=== PATIENT | male | born 1960 | race Caucasian/White ===

== ENCOUNTER 2018-11-29 06:54 | Day surgery (SDC) | payer MEDICAID ==
[~2018-11-29] VITALS: Ht 193 cm; Wt 85.9 kg
[~2018-11-29 06:54] MED LIST: AMIN30LI28 PO; ASCO500 PO; CA C1TAB95 PO; DIVA125T32 PO; DOCU250C91 PO; FERG325 PO; FOLI1 PO; MELA5TAB3 PO; MULT-1203 PO; OLAN10TA3 PO; SENN-176 PO
[2018-11-29] MEDS ORDERED: SODIUM CHLORIDE 0.9% 1,000 ML IV ONE ×2 (07:39→08:00)
[2018-11-29] MEDS ORDERED: LIDOCAINE 1%/EPI 1:200,000/PF 10 ML VIAL ONE (08:45)
[2018-11-29] MEDS ORDERED: FLUMAZENIL 0.1 MG/ML 5 ML VIAL IVP ONE (09:16)
[2018-11-29] MEDS ORDERED: MIDAZOLAM HCL 2 MG/2 ML VIAL ONE (09:16)
[2018-11-29] MEDS ORDERED: NALOXONE HCL 0.4 MG/ML VIAL ONE (09:16)
[2018-11-29] MEDS ORDERED: FentaNYL CITRATE-PF 100 MCG/2 ML VIAL ONE (09:16)
[2018-11-29] MEDS ORDERED: FentaNYL CITRATE-PF 100 MCG/2 ML VIAL IVP ONE (09:23)
[2018-11-29] MEDS ORDERED: MIDAZOLAM HCL 2 MG/2 ML VIAL IVP ONE (09:23)
[2018-11-29] MEDS ORDERED: OxyCODONE HCL/ACETAMINOPHEN 5-325 MG TABLET PO ONE (10:15)
== END 2018-11-29 12:30 | disposition home or self-care (01) ==
LOC: SURGERY 06:54 → EDSTATUS 09:00 → SURGERY 12:30
PROVIDERS: ATTEND Internal Medicine Geriatric Medicine
DX: R22.41 Localized swelling, mass and lump, right lower limb (principal); J45.909 Unspecified asthma, uncomplicated; Z79.899 Other long term (current) drug therapy; Z98.890 Other specified postprocedural states
CPT/HCPCS: 20206; 76942; 99242; J2250; J3010; J3490; J7030; 38505; 76937; J2310